=== PATIENT | female | born 1975 | race Caucasian/White ===

== ENCOUNTER 2017-08-12 19:33 | Emergency (ER) | payer MEDICAID ==
[2017-08-12 20:04] VITALS: TEMP 98.2
--- NOTE | 2017-08-12 20:21 | C.PDOC ---
History Of Present Illness 41 year old female with PMHx of PE 4 years ago is sent to the ED from the office of her PMD Dr. Valle for evaluation of SOB. Patient states she started feeling SOB yesterday, she had bee sick previously but yesterday she developed palpitations, dry cough and body aches. Patient also states she feels chest tightness and her appetite has decreased. Patient denies fever, chills, vomit, diarrhea, abdominal pain, back pain, weakness, numbness. Chief Complaint (Nursing): Shortness Of Breath History Per: Patient History/Exam Limitations: no limitations Onset/Duration Of Symptoms: Days Current Symptoms Are (Timing): Still Present Initiating Event: Other Quality: Tightness Exacerbating Factor(s): Exertion Current Respiratory Medications: See Home Med List Associated Symptoms: Ankle/Leg Swelling, Dizziness Recent travel outside of the [place]: No Additional History Per: Patient Past Medical History Reviewed: Historical Data, Nursing Documentation, Vital Signs Vital Signs: Last Vital Signs Temp 98.2 F 08/12/17 20:00 Pulse 90 08/12/17 23:22 Resp 16 08/12/17 23:22 BP 120/80 08/12/17 23:22 Pulse Ox 98 08/12/17 23:22 - Medical History PMH: Pulmonary Embolism Surgical History: Cholecystectomy - [facility] Procedures APPL/ADMIN OF AN ADHESION BARRIER SUBSTANCE (08/31/13) OTH LYSIS-PERITONEAL ADHES (08/31/13) PACKED CELL TRANSFUSION (08/31/13) UTERINE LES DESTRUCT NEC (08/31/13) Family History: States: Unknown Family Hx - Social History Hx Alcohol Use: No Hx Substance Use: No - Immunization History Hx Tetanus Toxoid Vaccination: Yes Hx Influenza Vaccination: Yes Hx Pneumococcal Vaccination: Yes Review Of Systems Constitutional: Negative for: Fever, Chills Cardiovascular: Positive for: Chest Pain. Negative for: Palpitations Respiratory: Positive for: Cough, Shortness of Breath Gastrointestinal: Negative for: Nausea, Vomiting, Abdominal Pain Musculoskeletal: Negative for: Back Pain Skin: Negative for: Rash Neurological: Positive for: Dizziness. Negative for: Weakness, Numbness, Headache Physical Exam - Physical Exam Appears: Non-toxic, No Acute Distress Skin: Normal Color, Warm, Dry Head: Atraumatic, Normacephalic Eye(s): bilateral: Normal Inspection Nose: No Discharge, No Deformity Oral Mucosa: Moist Neck: Normal ROM, Supple Chest: Symmetrical Cardiovascular: Rhythm Regular, No Murmur Respiratory: Normal Breath Sounds, No Rales, No Rhonchi, No Wheezing Gastrointestinal/Abdominal: Soft, No Tenderness, No Guarding, No Rebound Extremity: Normal ROM, No Tenderness, No Calf Tenderness, No Deformity, No Swelling Neurological/Psych: Oriented x3, Normal Speech, Normal Cognition Gait: Steady ED Course And Treatment - Laboratory Results Result Diagrams: 08/12/17 20:42 08/12/17 20:42 ECG: Interpreted By Me, Viewed By Me ECG Rhythm: Sinus Rhythm Interpretation Of ECG: Q3 and T in lead III Rate From EC O2 Sat by Pulse Oximetry: 99 (On Ra) Pulse Ox Interpretation: Normal - CT Scan/US CT angio chest Other Rad Studies (CT/US): Read By Radiologist, Radiology Report Reviewed CT/US Interpretation: EXAM: CT Angiography Chest With Intravenous Contrast. CLINICAL HISTORY: 41 years old, female; Signs and symptoms; Cough and dyspnea and shortness of breath; Symptoms. not specified; Additional info: SOB. TECHNIQUE: Axial computed tomographic angiography images of the chest with intravenous contrast using. pulmonary embolism protocol. All CT scans at this facility use one or more dose reduction. techniques, viz.: automated exposure control; ma/kV adjustment per patient size (including targeted. exams where dose is matched to indication; i.e. head); or iterative reconstruction technique. MIP reconstructed images were created and reviewed. Coronal and sagittal reformatted images were created and reviewed. CONTRAST: 100 mL of VISIPAQUE 320 administered intravenously. COMPARISON: No relevant prior studies available. FINDINGS: Pulmonary arteries: No acute pulmonary embolism. Aorta: No acute findings. No thoracic aortic aneurysm. Lungs: Unremarkable. No mass. No consolidation. Pleural space: Unremarkable. No significant effusion. No pneumothorax. Heart: Unremarkable. No cardiomegaly. No significant pericardial effusion. Bones/joints: Diffuse mild spinal degenerative changes. No acute fracture. No dislocation.Soft tissues: Unremarkable. Lymph nodes: Unremarkable. No enlarged lymph nodes. Gallbladder and bile ducts: Cholecystectomy. IMPRESSION: 1. No acute pulmonary embolism. 2. Remainder of findings as above. Medical Decision Making Medical Decision Making: Impression: SOB, rule out PE Plan: * CT angio chest * Labs * CXR Disposition Discussed With DrMirella: Dante Valle Counseled Patient/Family Regarding: Studies Performed, Diagnosis - Disposition Referrals: Dante Valle MD [Medical Doctor] - Disposition: HOME/ ROUTINE Disposition Time: 22:47 Condition: GOOD Prescriptions: predniSONE [predniSONE Tab] 60 mg PO DAILY 5 Days #3 tab Instructions: Acute Bronchitis Forms: [facility] (German) - Clinical Impression Clinical Impression: Dyspnea, Bronchitis - Scribe Statement The provider has reviewed the documentation as recorded by the Scribe Mychal Lambert All medical record entries made by the Scribe were at my direction and personally dictated by me. I have reviewed the chart and agree that the record accurately reflects my personal performance of the history, physical exam, medical decision making, and the department course for this patient. I have also personally directed, reviewed, and agree with the discharge instructions and disposition.
[2017-08-12 20:51] LABS: BASO % 0.2 % (0.0-2.0); HEMOGLOBIN 12.8 g/dL (11.0-16.0); LYMPH # 0.6 K/uL (1.0-4.3); LYMPH % 13.9 % (20.0-40.0); MEAN CELL VOLUME 81.3 fL (81.0-99.0); MEAN CORPUSCULAR HEMOGLOBIN 27.3 pg (27.0-31.0); MEAN CORPUSCULAR HGB CONC 33.5 g/dL (33.0-37.0); MEAN PLATELET VOLUME 9.1 fL (7.2-11.7); MONO # 0.1 K/uL (0.0-0.8); MONO % 3.1 % (0.0-10.0); NEUT # 3.5 K/uL (1.8-7.0); NEUT % 82.8 % (50.0-75.0); RBC 4.71 Mil/uL (3.80-5.20); RED CELL DISTRIBUTION WIDTH 13.7 % (11.5-14.5); WHITE BLOOD COUNT 4.2 K/uL (4.8-10.8)
[2017-08-12 21:10] LABS: ALB/GLOB RATIO 1.2 (1.0-2.1); ALBUMIN 4.2 g/dL (3.5-5.0); ALT/SGPT 59 U/L (9-52); AST/SGOT 44 U/L (14-36); BLOOD UREA NITROGEN 13 mg/dL (7-17); CALCIUM 8.9 mg/dl (8.6-10.4); GFR AFRICAN-AMERICAN > 60; GFR NON-AFRICAN AMERICAN > 60
[2017-08-12 21:21] LABS: B-TYPE NATRIURETIC PEPTIDE 21.8 pg/mL (0-450)
[2017-08-12] MEDS ORDERED: Iodixanol 320 MG/ML 100 ML BOTTLE IV ONE (21:47)
--- NOTE | 2017-08-12 22:31 | CT ---
EXAM: CT Angiography Chest With Intravenous Contrast CLINICAL HISTORY: 41 years old, female; Signs and symptoms; Cough and dyspnea and shortness of breath; Symptoms not specified; Additional info: SOB TECHNIQUE: Axial computed tomographic angiography images of the chest with intravenous contrast using pulmonary embolism protocol. All CT scans at this facility use one or more dose reduction techniques, viz.: automated exposure control; ma/kV adjustment per patient size (including targeted exams where dose is matched to indication; i.e. head); or iterative reconstruction technique. MIP reconstructed images were created and reviewed. Coronal and sagittal reformatted images were created and reviewed. CONTRAST: 100 mL of VISIPAQUE 320 administered intravenously. COMPARISON: No relevant prior studies available. FINDINGS: Pulmonary arteries: No acute pulmonary embolism. Aorta: No acute findings. No thoracic aortic aneurysm. Lungs: Unremarkable. No mass. No consolidation. Pleural space: Unremarkable. No significant effusion. No pneumothorax. Heart: Unremarkable. No cardiomegaly. No significant pericardial effusion. Bones/joints: Diffuse mild spinal degenerative changes. No acute fracture. No dislocation. Soft tissues: Unremarkable. Lymph nodes: Unremarkable. No enlarged lymph nodes. Gallbladder and bile ducts: Cholecystectomy. IMPRESSION: 1. No acute pulmonary embolism. 2. Remainder of findings as above.
[2017-08-12 23:23] VITALS: BP 120/80; PULSE 90; RESP 16
[2017-08-13 05:37] VITALS: O2SAT 99
--- NOTE | 2017-08-13 09:40 | RAD ---
HISTORY: SOB COMPARISON: No prior. TECHNIQUE: Chest PA and lateral FINDINGS: LUNGS: No active pulmonary disease. PLEURA: No evidence of significant pleural effusion or pneumothorax CARDIOVASCULAR: Normal. OSSEOUS STRUCTURES: No significant abnormalities. VISUALIZED UPPER ABDOMEN: Normal. OTHER FINDINGS: None. IMPRESSION: No active disease.
--- NOTE | 2017-08-15 12:53 | CARD ---
APPROVED REPORT EKG Measurement Heart [id number] <Conclusion> Normal sinus rhythm Normal ECG
== END 2017-08-12 23:22 | disposition home or self-care (01) ==
LOC: C.ER 19:33
DX: J40 Bronchitis, not specified as acute or chronic (principal); R06.00 Dyspnea, unspecified; Z86.711 Personal history of pulmonary embolism
CPT/HCPCS: 71046; 71275; 80053; 83880; 84484; 85025; 85378; 93005; 99283; Q9967